=== PATIENT | male | born 1955 | race Caucasian/White ===

== ENCOUNTER → 2019-11-21 | Outpatient (CLI) | payer OTHER ==
[~2019-11-21] MED LIST: ALLOPURINOL 30300 M1 PO; CIPROFLOXACIN500 M1 PO; CRESTOR20 MG PO; PROSED-DS TABL1 EACH PO; RAPAFLO4 MG PO; [UNRECOGNIZED DRUG - OTHER] PO; [UNRECOGNIZED DRUG - SUPPLY] OR
== END ==
LOC: LAB 07:45 → EDSTATUS 13:10
PROVIDERS: ATTEND Anesthesiology
DX: Z01.812 Encounter for preprocedural laboratory examination (principal)

== ENCOUNTER → 2020-01-06 | Outpatient (CLI) | payer OTHER, BC | LOC: LAB 08:00 | PROVIDERS: ATTEND Anesthesiology | DX: Z01.812 Encounter for preprocedural laboratory examination (principal); Z11.59 Encounter for screening for other viral diseases ==

== ENCOUNTER → 2020-02-03 | Outpatient (CLI) | payer OTHER, BC | LOC: LAB 11:47 | PROVIDERS: ATTEND Anesthesiology | DX: Z01.812 Encounter for preprocedural laboratory examination (principal); Z11.59 Encounter for screening for other viral diseases ==

== ENCOUNTER → 2020-03-26 | Outpatient (CLI) | payer OTHER, BC | LOC: LAB 11:52 | PROVIDERS: ATTEND Anesthesiology | DX: Z01.812 Encounter for preprocedural laboratory examination (principal); Z20.828 Contact with and (suspected) exposure to other viral communicable diseases ==